=== PATIENT | male | born 1970 | race Caucasian/White ===

== ENCOUNTER 2023-07-14 09:05 | Emergency (ER) | payer OTHER, SELFPAY ==
[2023-07-14 09:14] VITALS: BP 140/86; PULSE 96; RESP 18; TEMP 36.8; O2SAT 100; BMI 24.2
--- NOTE | 2023-07-14 10:02 | ED_ITS ---
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 His tetanus is up to date. He is right handed. No other i njuries or complaints. He signed in to the ED rather than go to [facility] to be evaluated. Bleeding is controlled. Related Data Allergies Allergy/AdvReac Type Severity Reaction Status Date / Time No Known Drug Allergies Allergy Verified 07/14/23 09:13 [facility] Social History Smoking status: Current every day smoker Exam Narrative Exam Narrative: Nurses notes and vital signs reviewed and patient is not hypoxic. afebrile General: Well-appearing and in no apparent distress. Skin: Warm, dry, no pallor noted. Head: Normocephalic, atraumatic. Eye: Pupils are equal, round and EOMI. No scleral icterus. Cardiovascular: Normal peripheral perfusion. Respiratory: No accessory muscle use or respiratory distress. Musculoskeletal: 15mm deep laceration to the volar left forearm - I do not see any tendon involvement and he has normal ROM and strength in the left forearm, wrist and finger of the left hand. Remainder of the left UE with normal ROM and no sign of injury. No upper extremity edema/swelling Neurological: A&O x4. No cranial nerve dysfunction observed. No truncal ataxia. Moves all extremities. Sensation intact. Psychiatric: Cooperative and interactive. Normal mood and affect. Constitutional Vital Signs, click to edit/add: Last Vital Signs Temp 98.3 F 07/14/23 09:14 Pulse 96 H 07/14/23 09:14 Resp 18 07/14/23 09:14 BP 140/86 07/14/23 09:14 Pulse Ox 100 07/14/23 09:14 O2 Del Method Room Air 07/14/23 09:14 Course Vital Signs Vital signs: Vital Signs Temperature 98.3 F 07/14/23 09:14 Pulse Rate 96 H 07/14/23 09:14 Respiratory Rate 18 07/14/23 09:14 Blood Pressure 140/86 07/14/23 09:14 Pulse Oximetry 100 07/14/23 09:14 Oxygen Delivery Method Room Air 07/14/23 09:14 Temperature 98.3 F 07/14/23 09:14 Pulse Rate 96 H 07/14/23 09:14 Respiratory Rate 18 07/14/23 09:14 Blood Pressure 140/86 07/14/23 09:14 Pulse Oximetry 100 07/14/23 09:14 Oxygen Delivery Method Room Air 07/14/23 09:14 Medical Decision Making MDM Narrative Medical decision making narrative: I spoke with Mary Lou at the occupational health office. She will take this patient in [facility] and suture his wound, complete necessary paperwork and secure follow up plus work restrictions. patient and I discusse this and he is agreement. he has had a medical screening exam and his condition is stable. Patient escorted by staff from the ED to the [facility] office Discharge Plan Discharge Chief Complaint: Skin/Abscess/Foreign Body Clinical Impression: Laceration Patient Disposition: Home, Self-Care Time of Disposition Decision: 10:08 Stand Alone Forms: Portal Instructions Referrals: [facility] [Outside] - As soon as possible (will be escorted directly from ED to [facility] office)
--- NOTE | 2023-07-14 10:08 | PC.NURSE ---
laceration to LFA cleansed and dressing on, pt will go to [facility] for further treatment and with paperwork
== END 2023-07-14 10:10 | disposition home or self-care (01) ==
PROVIDERS: Emergency Provider Emergency Medicine
DX: S51.812A Laceration without foreign body of left forearm, initial encounter (principal); W26.8XXA Contact with other sharp object(s), not elsewhere classified, initial encounter; F17.210 Nicotine dependence, cigarettes, uncomplicated
CPT/HCPCS: 99282